=== PATIENT | female | born 1980 | race Caucasian/White ===

== ENCOUNTER 2018-04-25 08:53 | Day surgery (SDC) | payer OTHER ==
[~2018-04-25] VITALS: Ht 149.9 cm; Wt 65.3 kg
[2018-04-25] MEDS ORDERED: CEFAZOLIN SODIUM 1 GM/D5W PM 50 ML IV SCH (10:10)
[2018-04-25] MEDS ORDERED: BUPIVACAINE-MPF/EPI 0.25% 30 ML VIAL INJ ONE (13:24)
[2018-04-25] MEDS ORDERED: PROPOFOL 200 MG/20 ML VIAL IV ONE (13:31)
[2018-04-25] MEDS ORDERED: GLYCOPYRROLATE 0.2 MG/ML VIAL ONE (13:31)
[2018-04-25] MEDS ORDERED: SUCCINYLCHOLINE CHLORIDE 200 MG/10 ML VIAL IVP ONE (13:31)
[2018-04-25] MEDS ORDERED: LIDOCAINE 2% 100 MG/5 ML SYR IVP ONE (13:31)
[2018-04-25] MEDS ORDERED: DESFLURANE 240 ML BTL INH ONE (13:31)
[2018-04-25] MEDS ORDERED: ROCURONIUM 50 MG/5 ML VIAL IV ONE (13:31)
[2018-04-25] MEDS ORDERED: KETOROLAC 30 MG/ML VIAL ONE (13:31)
[2018-04-25] MEDS ORDERED: DEXAMETHASONE 4 MG/ML VIAL ONE (13:31)
[2018-04-25] MEDS ORDERED: PHENYLEPHRINE 10 MG/ML VIAL ONE (13:31)
[2018-04-25] MEDS ORDERED: MIDAZOLAM 2 MG/2 ML VIAL ONE (13:40)
[2018-04-25] MEDS ORDERED: fentaNYL 0.05 MG/ML VIAL ONE (13:41)
[2018-04-25] MEDS ORDERED: ONDANSETRON 4 MG/2 ML VIAL IVP PRN (14:00)
[2018-04-25] MEDS: HYDROmorphone 1 MG/ML AMP IVP PRN ×4 (15:00→15:30)
[2018-04-25] MEDS ORDERED: NACL 0.9% 1,000 ML IV SCH (15:11)
[2018-04-25] MEDS ORDERED: HYDROmorphone PFS 2 MG/ML SYR ONE (15:13)
[2018-04-25] MEDS ORDERED: MORPHINE SULFATE 2 MG/ML SYR IVP PRN (15:15)
[2018-04-25] MEDS ORDERED: HYDROmorphone 1 MG/ML AMP IVP PRN (15:15)
[2018-04-25] MEDS ORDERED: MORPHINE SULFATE 4 MG/ML SYR IV PRN (15:15)
[2018-04-25] MEDS ORDERED: ONDANSETRON 4 MG/2 ML VIAL IV PRN (15:15)
[2018-04-25] MEDS: HYDROcodone/APAP 5/325 MG 1 TAB TAB PO PRN (19:20)
== END 2018-04-25 21:15 | disposition home or self-care (01) ==
LOC: MDS 08:53 → MMU 08:56 → MTU 14:59 → MDS 21:15
PROVIDERS: ATTEND Surgery
DX: K80.10 Calculus of gallbladder with chronic cholecystitis without obstruction (principal); K21.9 Gastro-esophageal reflux disease without esophagitis; Z79.899 Other long term (current) drug therapy
CPT/HCPCS: 47562; 71045; 82374; C1887; J0330; J0690; J1100; J1170; J1885; J2001; J2250; J2370; J2704; J3010; J3490; J7030; J7120